=== PATIENT | male | born 1990 | race Caucasian/White ===

== ENCOUNTER 2016-12-04 13:26 | Emergency (ER) | payer BC, OTHER ==
[~2016-12-04] VITALS: Ht 177.8 cm; Wt 108.0 kg
[2016-12-04 13:29] VITALS: BP 145/76; PULSE 75; RESP 16; TEMP 97.6; O2SAT 99
--- NOTE | 2016-12-04 15:02 | PD ---
HPI Chief Complaint: Laceration/Skin Injury Time Seen by Provider: 14:18 Travel History International Travel<30 days: No Contact w/Intl Traveler<30days: No Traveled to known affect area: No History of Present Illness HPI 26 year-old male presents to the emergency room for evaluation of left thumb laceration that occurred last night at 10:00 PM. Patient was cutting scissors of his right hand when he accidentally nicked his left thumb. States it bled a significant amount. He washed it with soap and water and then apply antiseptic ointment. He presents today stating he wanted to make sure the wound was cleaned. Last tetanus was between 5 and 6 years ago. History Past Medical Histgory Medical History: Denies Significant Hx Social History Alcohol Use: Yes Tobacco Use: Yes Allergies-Medications (Allergen,Severity, Reaction): Coded Allergies: No Known Allergies (Unverified , 12/04/16) Reported Meds & Prescriptions Reported Meds & Active Scripts Active No Active Prescriptions or Reported Medications Review of Systems Except as stated in HPI: all other systems reviewed are Neg Physical Exam Narrative GENERAL: Well-nourished, well-developed male in no acute distress. Afebrile. Ambulatory. SKIN: Focused skin assessment warm/dry. There is a 7 x 2 mm extremely superficial avulsion at the tip of the left thumb, just below the nail. It is not bleeding. HEAD: Normocephalic. EYES: No scleral icterus. No injection or drainage. NECK: Supple, trachea midline. No JVD or lymphadenopathy. CARDIOVASCULAR: Regular rate and rhythm without murmurs, gallops, or rubs. RESPIRATORY: Breath sounds equal bilaterally. No accessory muscle use. MUSCULOSKELETAL: No cyanosis, or edema. Full range motion of the hand. Less than 2 second capillary refill distally in the left thumb. Data Data Last Documented VS Vital Signs Date Time Temp Pulse Resp B/P (MAP) Pulse Ox O2 Delivery O2 Flow Rate FiO2 12/04/16 13:29 97.6 75 16 145/76 (99) 99 MDM Medical Screen Exam Complete: Yes Emergency Medical Condition: No Differential Diagnosis Avulsion Narrative Course 26-year-old male presents to the emergency room for evaluation of a skin avulsion to his left thumb that occurred about 16 hours prior to arrival. Patient accidentally cut the skin of his left distal thumb off with scissors. Physical exam reveals a 7 x 2 mm extremely superficial avulsion that is nonbleeding just below the fingernail. Wound was cleansed with soap and water and a Band-Aid was applied in the emergency room. Patient was reassured. There are no urgent or emergent medical conditions at this time. A medical screening exam was performed: At the time of evaluation the presenting medical condition was determined not to be of an emergent nature. The patient was given the option of receiving additional care, but declined. Patient was given options for additional community resources from which to obtain care. The Patient Has Been advised to seek medical attention for their presenting complaint. The patient has been advised to return to the ER at any time if an emergent condition develops. Primary Impression: Encounter for medical screening examination Scripts No Active Prescriptions or Reported Meds Disposition: 01 DISCHARGE HOME Condition: Stable Selene Gill Dec 04, 2016 15:02
== END 2016-12-04 14:37 | disposition left against medical advice (07) ==
LOC: PHEFT 13:26
DX: S61.012A Laceration without foreign body of left thumb without damage to nail, initial encounter (principal); W45.8XXA Other foreign body or object entering through skin, initial encounter
CPT/HCPCS: 99281